=== PATIENT | male | born 1955 | race Caucasian/White ===

== ENCOUNTER 2016-06-03 07:05 | Day surgery (SDC) | payer OTHER ==
[~2016-06-03] VITALS: Ht 188 cm; Wt 97.5 kg
[~2016-06-03 07:05] MED LIST: 0.9% Sodium Chloride 1,000 ML IV SCH; OMEP20TA86 PO; Sodium Chloride LOK Flush 10 mL Syringe IV PRN; fentaNYL-PF 50 mCg/mL 2 mL Inj IVPUSH PRN
[2016-06-03 07:25] VITALS: BP 127/88; PULSE 66; RESP 16; O2SAT 94
[2016-06-03] MEDS ORDERED: 0.9% Sodium Chloride 1,000 ML IV ONE (08:07)
[2016-06-03 08:14] VITALS: BP 129/87; PULSE 67; RESP 14; O2SAT 95
[2016-06-03 08:24] VITALS: BP 117/73; PULSE 81; RESP 16; O2SAT 96
--- NOTE | 2016-06-03 09:47 | ENDO ---
[address] [address] ENDOSCOPY PROCEDURE PATIENT: GINA JEREZ : 1955 MR#: [id number] ADMIT: 06/03/2016 JOB ID: [id number] DATE OF SERVICE: 06/03/2016 TYPE OF OPERATION: Esophagogastroduodenoscopy with biopsy with esophageal dilatation. PREOPERATIVE DIAGNOSIS(ES): Dysphagia. POSTOPERATIVE DIAGNOSIS(ES): 1. Widely open, patent Schatzki ring, status post biopsy and TTS CRE balloon dilatation from 18 to 20 mm in a serial fashion with good mucosal tear. 2. Small hiatal hernia. 3. Concentric rings seen throughout the entire esophagus, status post biopsy in mid and distal esophagus. ANESTHESIA: Fentanyl 100 mcg, Versed 5 mg IV administered. COMPLICATIONS: None. BLOOD LOSS: Minimal. DESCRIPTION OF PROCEDURE: After risks and benefits explained to the patient, informed consent was obtained. After anesthesia administered, the upper endoscope was then inserted into the mouth and intubated into the esophagus, stomach, second portion of duodenum. Mucosa carefully examined. After the procedure was done, the scope was withdrawn and procedure terminated. FINDINGS: Upon inspection of the esophagus, there were concentric rings seen throughout the entire esophagus concerning for eosinophilic esophagitis. There was also a widely open, patent Schatzki ring seen at 40 cm from incisors. The Z-line located 48 cm from incisors. Upon entering stomach, the stomach was normal without masses, ulcers, or lesions. Retroflexion showed small hiatal hernia. Duodenal bulb, first and second portions normal. Biopsies taken from mid and distal esophagus. Afterwards, a CRE TTS balloon dilatation performed from 18 to 20 mm in a serial fashion with good mucosal tear. IMPRESSIONS: 1. Concentric rings were seen throughout the entire esophagus concerning for eosinophilic esophagitis. 2. Widely open, patent Schatzki ring, status post biopsy and CRE balloon dilatation from 18 to 20 mm in a serial fashion with good mucosal tear. 3. Small hiatal hernia. RECOMMENDATIONS: 1. Continue omeprazole 40 mg by mouth twice a day. 2. Follow up in GI clinic.
--- NOTE | 2016-06-06 14:07 | PATH ---
SURGICAL PATHOLOGY Attending Physician:Stuart Heaton MD CASE STATUS: Signed Out PATIENT NAME: GINA JEREZ PID: [id number] : 1955 DATE COLLECTED:06/03/2016 21:16 SPECIMEN: 1: Esophagus, Biopsy 2: Esophagus, Biopsy CLINICAL HISTORY: 1). MID ESOPHAGUS BIOPSY 2). DISTAL ESOPHAGUS BIOPSY FINAL DIAGNOSIS: 1.MID ESOPHAGUS BIOPSY: SINGLE FRAGMENT OF SQUAMOUS EPITHELIUM, NEGATIVE FOR ATYPIA. RARE EOSINOPHIL PRESENT WITHIN THE EPITHELIUM, NONSPECIFIC, BUT CONSISTENT WITH CHANGES OF CHRONIC REFLUX. 2.DISTAL ESOPHAGUS BIOPSY: FRAGMENTS OF SQUAMOUS MUCOSA WITH SOME GASTRIC CARDIA-TYPE MUCOSA, NEGATIVE FOR SPECIALIZED METAPLASIA OF VILLARREAL' S-TYPE ESOPHAGUS. NONSPECIFIC REACTIVE EPITHELIAL CHANGES WITH SCATTERED GROUPS OF EOSINOPHILS PRESENT WITHIN THE SQUAMOUS EPITHELIUM NUMBERING MANY 7 PER HIGH-POWERED FIELD, CONSISTENT WITH CHANGES OF CHRONIC REFLUX. ICD10 code NOTE: The eosinophils present within the squamous epithelium and the rare eosinophil present in part 1 from the mid esophagus raises the question of possible eosinophilic esophagitis; however, it is not at all diagnostic of that process and is consistent with the changes of chronic reflux. GROSS DESCRIPTION: Received are two formalin-filled containers, both labeled with the patient' s name: 1. Received in formalin, labeled with the patient' s name and "mid esophagus biopsy", is one fragment of scott, soft tissue measuring 0.1 x 0.1 x 0.1 cm. The fragment is totally submitted in cassette 1A. 2. Received in formalin, labeled with the patient' s name and "distal esophagus biopsy", are two fragments of scott, soft tissue ranging in size from 0.1 x 0.1 x 0.1 cm to 0.2 x 0.1 x 0.1 cm. All fragments are totally submitted in cassette 2A. ([id number]) MICRO DESCRIPTION: See diagnosis. ICD-9 CODES: CPT CODES: 1: 33199 2: 90296 Electronically Signed Out Kike Carranza MD [facility] [address], [place] [address] Technical component performed at [facility], [facility] [address], [place], [address]
== END 2016-06-03 23:59 | disposition home or self-care (01) ==
LOC: END 07:05
PROVIDERS: ATTEND Internal Medicine Gastroenterology
DX: K21.9 Gastro-esophageal reflux disease without esophagitis (principal); K22.70 Barrett's esophagus without dysplasia; K22.2 Esophageal obstruction; K44.9 Diaphragmatic hernia without obstruction or gangrene; F17.210 Nicotine dependence, cigarettes, uncomplicated
CPT/HCPCS: 43239; 43249; G0500; J2250; J3010; J7030